=== PATIENT | female | born 1990 ===

== ENCOUNTER 2021-12-13 15:30 | Emergency (ER) | payer SELFPAY ==
[2021-12-13 17:00] VITALS: BP 130/71
[2021-12-13 21:32] LABS: Hematocrit 36.3 % (30.3-42.9); Hemoglobin 11.7 gm/dl (10.1-14.3); Mean Corpuscular HGB Conc 32 % (30-34); Mean Corpuscular Volume 81 fl (79-97); Platelet Count 394 K/mm3 (140-440); Red Blood Count 4.47 M/mm3 (3.65-5.03); Red Cell Distribution Width 16.7 % (13.2-15.2)
--- NOTE | 2021-12-13 23:11 | Emergency Department Report ---
ED HPI - General Chief complaint: OB/Uterine Contractions Stated complaint: EARLY /SPOTTING Time Seen by Provider: 12/13/21 22:40 Source: patient Mode of arrival: Ambulatory Limitations: No Limitations - History of Present Illness Initial comments: 31 yo F who present with vaginal spotting that started 4 days ago and recur yesterday. LMP was 10/24. Pt denies any gush of fluid. She also mentioned bilateral lower abdominal discomfort. No fall or trauma reported. Pt also denies any urinary frequency or urgency. No other modifying or associated factors reported. ED Review of Systems ROS: Stated complaint: EARLY /SPOTTING Other details as noted in HPI Comment: All other systems reviewed and negative Gastrointestinal: abdominal pain, nausea Genitourinary: other (vaginal spotting with lower abdominal pain ) ED Physical Exam - General Limitations: No Limitations General appearance: alert, in no apparent distress - ENT ENT exam: Present: normal exam, normal orophraynx, mucous membranes moist - Neck Neck exam: Present: normal inspection, full ROM. Absent: tenderness - Respiratory Respiratory exam: Present: normal lung sounds bilaterally. Absent: respiratory distress, accessory muscle use - Cardiovascular Cardiovascular Exam: Present: regular rate, normal rhythm, normal heart sounds - GI/Abdominal GI/Abdominal exam: Present: soft, tenderness (left lower abdomen with suprapubic discomfort), normal bowel sounds - Extremities Exam Extremities exam: Present: normal inspection. Absent: tenderness - Back Exam Back exam: Present: normal inspection, full ROM. Absent: tenderness, CVA tenderness (R), CVA tenderness (L) - Neurological Exam Neurological exam: Present: alert - Psychiatric Psychiatric exam: Present: normal affect, normal mood ED Course Vital Signs 12/13/21 16:56 Temperature 98.2 F Pulse Rate 94 H Respiratory 18 Rate Blood Pressure 130/71 [Left] O2 Sat by Pulse 99 Oximetry - Reevaluation(s) Reevaluation #1: 12/13/21 23:06 vaginal spotting at 7 1/7 wks who present spotting with ADDIE 07/31/3022-- noted with left lower abdominal pain and suprapubic tenderness-- symptoms likely as a result of round ligament and can not rule out ectopic or threaten --will go ahead and check routine CBC, CMP and coag level--- and beta hCG-- with US -- Reevaluation #2: 12/14/21 01:36 Transvaginal US noted with single, living intrauterine with estimated sonographic age of 6 weeks 0-day--and with reassuring beta hCG at 49,042--also noted with hemoglobin and hematocrit are within normal limits--patient reassured with close follow-up with [employer]NAGER in the next 2 to 3 days for progress--warning given if bleeding worsen to the point of changing to pads every hours will be the time to call her it recruiter or return to ED for reevaluation as this could be sign of complication that needed to be addressed urgently. ED Medical Decision Making - Lab Data Result diagrams: 12/13/21 23:09 Critical care attestation.: If time is entered above; I have spent that time in minutes in the direct care of this critically ill patient, excluding procedure time. ED Disposition Clinical Impression: Threatened in early , Vaginal bleeding affecting early preg jomar, Lower abdominal pain Disposition: 01 HOME / SELF CARE / HOMELESS Is pt being admited?: No Does the pt Need Aspirin: No Condition: Stable Instructions: Vaginal Bleeding During , First Trimester, Activity Restriction During , Abdominal Pain During , [id number] Additional Instructions: It is very important that you call your [employer]ATION[employer]IP MANAGER and follow-up in the next 24 to 48 hours for progress Please do not hesitate to call or return to emergency room if your symptoms worsen such as changing pad twice within 1 hour as this could be a sign of complication that need to be addressed urgently. It is okay to take Tylenol every 6-8 hours as needed for pain Time of Disposition: 01:39
--- NOTE | 2021-12-13 23:16 | Ultrasound Report ---
ULTRASOUND OBSTETRIC INDICATION / CLINICAL INFORMATION: Abdominal pain with and cramping. Clinical Gestational Age (GA) in weeks, days: 7, 1 TECHNIQUE: Transabdominal. COMPARISON: None available. FINDINGS: GESTATIONAL SAC: Well-defined oval shape and intrauterine in location. YOLK SAC: No significant abnormality. EMBRYO/FETUS: No significant abnormality. - [place]-Rump Length = 0.3 cm = 6, 0 weeks, days - Heart Rate, beats per minute (if present) = 114 ADNEXA: No significant abnormality. FREE FLUID: None. ADDITIONAL FINDINGS: None. IMPRESSION: 1. Single, living intrauterine with estimated sonographic age of 6, 0 weeks, days. Signer Name: Silvio Jackson DO Signed: 12/13/2021 11:11 PM Workstation Name: [id number]
[2021-12-13 23:32] LABS: Basophils # (Auto) 0.1 K/mm3 (0.0-0.1); Basophils % (Auto) 0.5 % (0.0-1.8); Eosinophils % (Auto) 0.4 % (0.0-4.3); Hematocrit 35.1 % (30.3-42.9); Hemoglobin 11.3 gm/dl (10.1-14.3); Lymphocytes # (Auto) 2.8 K/mm3 (1.2-5.4); Lymphocytes % (Auto) 28.1 % (13.4-35.0); Mean Corpuscular HGB Conc 32 % (30-34); Mean Corpuscular Volume 82 fl (79-97); Monocytes # (Auto) 0.7 K/mm3 (0.0-0.8); Monocytes % (Auto) 7.5 % (0.0-7.3); Platelet Count 367 K/mm3 (140-440); Red Blood Count 4.28 M/mm3 (3.65-5.03); Red Cell Distribution Width 16.8 % (13.2-15.2)
[2021-12-14 01:01] LABS: Bilirubin,Urine NEG (Negative); Blood,Urine SM (Negative); Color,Urine Yellow (Yellow); Mucus,Urine FEW /HPF; Protein,Urine <15 mg/dL mg/dL (Negative); Urobilinogen,Urine < 2.0 mg/dL (<2.0)
== END 2021-12-14 02:06 | disposition home or self-care (01) ==
LOC: ED 15:30
DX: O20.0 Threatened abortion (principal); Z3A.01 Less than 8 weeks gestation of pregnancy
CPT/HCPCS: 36415; 76801; 81001; 84702; 85025; 85027; 86850; 86900; 86901; 99284